=== PATIENT | male | born 1985 | race Caucasian/White ===

== ENCOUNTER 2019-01-13 13:01 | Emergency (ER) | payer SELFPAY ==
[~2019-01-13] VITALS: Ht 180.3 cm; Wt 115.9 kg
[2019-01-13 13:04] VITALS: BP 115/75; TEMP 98.9
[2019-01-13] MEDS ORDERED: PRINIVIL20 MG PO (15:02)
[2019-01-13 15:44] VITALS: PULSE 74
== END 2019-01-13 15:45 | disposition home or self-care (01) ==
LOC: COL.ER 13:01
DX: S61.211A Laceration without foreign body of left index finger without damage to nail, initial encounter (principal); S61.012A Laceration without foreign body of left thumb without damage to nail, initial encounter; I10 Essential (primary) hypertension; Z23 Encounter for immunization; W26.0XXA Contact with knife, initial encounter; Y92.59 Other trade areas as the place of occurrence of the external cause